=== PATIENT | female | born 1975 | race Caucasian/White ===

== ENCOUNTER 2020-10-20 13:54 | Outpatient (CLI) | payer BC, SELFPAY ==
--- NOTE | ~2020-10-20 | US_ITS ---
EXAMINATION: US thyroid DATE: 10/20/2020 15:56 INDICATION: Goiter. TECHNIQUE: Multiple ultrasound images of the thyroid were obtained. COMPARISON: None. FINDINGS: The right thyroid lobe measures 4.6 x 2.0 x 1.8 cm. The left thyroid lobe measures 4.2 x 2.4 x 2.7 c m. In the right thyroid lobe, there is a 1.7 cm solid, hypoechoic, nrrkp-jrmj-fkax nodule with irina h margin without echogenic foci (TI-RADS TR4). In the left thyroid lobe, there is a 2.1 cm solid, iso echoic, qywow-vzsu-xggl nodule with smooth margin without echogenic foci (TR3). In the left thyroid l obe, there is a 2.6 cm mixed cystic and solid, hypoechoic, rsgal-lelu-emna nodule with ill-defined ma rgin without echogenic foci (TR3). In the left thyroid isthmus, there is a 2.0 cm solid, hypoechoic, ewceo-ofst-zurf nodule with smooth margin without echogenic foci (TR4). In the right thyroid lobe, th ere is a 10 mm solid, hypoechoic, hoszd-tzzc-nzaf nodule with ill-defined margin without echogenic fo ci (TR4). IMPRESSION: 1. Multinodular goiter. Ultrasound-guided fine-needle aspiration of 2 nodules is recommended. Reviewed, dictated and finalized at location A. TAL [employer] INTERN IMPRESSION: 1. Multinodular goiter. Ultrasound-guided fine-needle aspiration of 2 nodules i s recommended.
--- NOTE | 2020-10-20 14:19 | ECHO_ITS ---
Patient Info Name: Elsa Franklin Age: 45 years : 1975 Gender: Female Ht: 58 in Wt: 126 lbs BSA: 1.55 m2 HR: 90 bpm BP: 121 / 74 mmHg Heart Rhythm: Sinus Rhythm Technical Quality: Fair Exam Date: 10/20/2020 2:40 PM Exam Location: [facility] Patient Status: Outpatient Admit Date: 10/20/2020 Staff Ordering Physician: Macarena Vidal DO Truck Washer: Abbey Schuster RDCS Attending Provider: Macarena Vidal DO Referring Physician: Marcy BRYANT; Exam Type: CA echo doppler color flow Study Info Indications R01.1 - Cardiac murmur, unspecified Complete two-dimensional, color flow and Doppler transthoracic echocardiogram is performed. History/Risk Factors Murmur. Summary 1. Complete two-dimensional, color flow and Doppler transthoracic echocardiogram is performed. 2. Left ventricular chamber dimension is normal. 3. Left ventricular systolic function is normal, estimated at 60-65%. 4. The left ventricular diastolic function is abnormal. 5. E/e' 16 is elevated. 6. Left atrial chamber dimension is mildly enlarged. 7. There is moderate aortic valve sclerosis. 8. There is mild aortic valve stenosis based on a peak velocity of 210 cm/s, mean gradient of 8 mmHg, and aortic valve area of 1.4 cm2. 9. The mitral valve has mildly calcified annulus. 10. There is mild to moderate mitral valve regurgitation. 11. No pulmonary hypertension, estimated pulmonary arterial systolic pressure is 33 mmHg. Left Ventricle E/e' 16 is elevated. Left ventricular chamber dimension is normal. Left ventricular systolic function is normal, estimated at 60-65%. The left ventricular diastolic function is abnormal. Right Ventricle Right ventricular chamber dimension is normal. Right ventricular systolic function is normal. Left Atria Left atrial chamber dimension is mildly enlarged. Right Atria Right atrial chamber dimension is normal. Aortic Valve There is mild aortic valve stenosis based on a peak velocity of 210 cm/s, mean gradient of 8 mmHg, and aortic valve area of 1.4 cm2. Probably trileaflet aortic valve. The aortic valve is not well visualized. There is moderate aortic valve sclerosis. There is no aortic valve regurgitation. Pulmonic Valve There is no pulmonic regurgitation. Mitral Valve The mitral valve has mildly calcified annulus. There is no mitral valve stenosis. There is mild to moderate mitral valve regurgitation. Tricuspid Valve There is no tricuspid valve regurgitation. No pulmonary hypertension, estimated pulmonary arterial systolic pressure is 33 mmHg. Pericardium/Pleural There is no pericardial effusion. Inferior Vena Cava Normal inferior vena cava with >50% collapse upon inspiration consistent with normal right atrial pressure, 5 mmHg. Aorta The aortic root size at the sinus of Valsalva is not well visualized. Left Ventricular Outflow Tract Name Value Normal LVOT 2D LVOT Diameter 2.0 cm LVOT Doppler LVOT Peak Gradient 2 mmHg LVOT Mean Gradient 1 mmHg LVOT VTI
== END 2020-10-20 13:55 | disposition home or self-care (01) ==
PROVIDERS: PCP Family Medicine; Visit Provider Family Medicine
DX: R01.1 Cardiac murmur, unspecified (principal); E04.2 Nontoxic multinodular goiter
CPT/HCPCS: 76536; 93306

== ENCOUNTER 2021-01-29 09:11 | Outpatient (CLI) | payer BC, SELFPAY ==
--- NOTE | ~2021-01-29 | US_ITS ---
EXAMINATION: 1. US FNA additional 2. US FNA additional 3. US FNA w image guidance DATE: 01/29/2021 10:18 INDICATION: Nontoxic multinodular goiter. TECHNIQUE: The procedure and its benefits and risks were discussed with the patient. Risks specifically discusse d included bleeding. The patient verbalized understanding of the risks and agreed to proceed. The nec k was prepped and draped in the usual sterile manner. 1% lidocaine was used for local anesthesia. 5 passes were made with a 25G needle into the lesion in left thyroid isthmus under ultrasound guidance . 5 passes were made with a 25G needle into the lesion in superior left thyroid lobe under ultrasound g uidance. 5 passes were made with a 25G needle into the lesion in inferior left thyroid lobe under ultrasound g uidance. There were no immediate complications. The patient understood to call the ordering physici an for results and verbalized that understanding. FINDINGS: Grayscale ultrasound images demonstrate needles advanced into a 2.0 cm nodule in left thyroid isthmus for biopsy. Grayscale ultrasound images demonstrate needles advanced into a 2.1 cm nodule in superio r left thyroid lobe. Grayscale ultrasound images demonstrate needles advanced into a 2.6 cm nodule in inferior left thyroid lobe. IMPRESSION: 1. Ultrasound-guided fine needle aspiration of a nodule in left thyroid isthmus. 2. Ultrasound-guided fine-needle aspiration of a nodule in superior left thyroid lobe. 3. Ultrasound-guided fine-needle aspiration of a nodule in inferior left thyroid lobe. Reviewed, dictated and finalized at location A. IMPRESSION: 1. Ultrasound-guided fine needle aspiration of a nodule in left thyroid isthmu s. 2. Ultrasound-guided fine-needle aspiration of a nodule in superior left thyroi d lobe. 3. Ultrasound-guided fine-needle aspiration of a nodule in inferior left thyroi d lobe. IMPRESSION: 1. Ultrasound-guided fine needle aspiration of a nodule in left thyroid isthmu s. 2. Ultrasound-guided fine-needle aspiration of a nodule in superior left thyroi d lobe. 3. Ultrasound-guided fine-needle aspiration of a nodule in inferior left thyroi d lobe.
== END 2021-01-29 09:12 | disposition home or self-care (01) ==
PROVIDERS: PCP Family Medicine; Visit Provider Internal Medicine Endocrinology, Diabetes & Metabolism
DX: E04.1 Nontoxic single thyroid nodule (principal); E04.2 Nontoxic multinodular goiter
CPT/HCPCS: 10005; 10006; 88173; 88305

== ENCOUNTER 2021-04-06 09:31 | Outpatient (CLI) | payer BC, SELFPAY ==
--- NOTE | ~2021-04-06 | US_ITS ---
EXAMINATION: US thyroid DATE: 04/06/2021 10:06 INDICATION: Nontoxic multinodular goiter. TECHNIQUE: Multiple ultrasound images of the thyroid were obtained. COMPARISON: Ultrasound 10/20/2020 FINDINGS: The right thyroid lobe measures 4.7 x 1.7 x 2.1 cm. The left thyroid lobe measures 5.5 x 2.8 x 2.9 c m. In the right thyroid lobe, there is a 1.2 cm solid, hypoechoic, yrsbq-jmaq-fvhx nodule with irina h margin without echogenic foci (TI-RADS TR4). In the right thyroid lobe, there is a 1.7 cm solid, hy poechoic, uyauw-wifh-ebiw nodule with smooth margin without echogenic foci (TR4). In the left thyroid lobe, there is a 3.2 cm predominantly solid, hypoechoic, haosc-pkin-mgwt nodule with smooth margin w ithout echogenic foci (TR4). IMPRESSION: 1. Multinodular goiter, stable from 10/20/2020. Biopsy of three nodules on 01/29/2021 demonstrated benig n pathology. Reviewed, dictated and finalized at location A. IMPRESSION: 1. Multinodular goiter, stable from 10/20/2020. Biopsy of three nodules on 021 demonstrated benign pathology.
== END 2021-04-06 09:32 | disposition home or self-care (01) ==
PROVIDERS: PCP Family Medicine; Visit Provider Internal Medicine Endocrinology, Diabetes & Metabolism
DX: E04.2 Nontoxic multinodular goiter (principal)
CPT/HCPCS: 76536

== ENCOUNTER 2022-03-31 13:04 | Outpatient (CLI) | payer BC, SELFPAY ==
--- NOTE | ~2022-03-31 | US_ITS ---
EXAMINATION: US thyroid DATE: 03/31/2022 14:17 INDICATION: Nontoxic multinodular goiter TECHNIQUE: Multiple ultrasound images of the thyroid were obtained. COMPARISON: 04/06/2021 FINDINGS: The right thyroid lobe measures 4.2 x 1.8 x 1.7 cm. The left thyroid lobe measures 6.6 x 2.7 x 2.6 c m. Thyroid isthmus measures 2 mm in thickness. There are multiple bilateral thyroid nodules. No inte rval change in a 1.8 cm wider than tall solid hypoechoic nodule at the left-sided thyroid isthmus wit h smooth margins and without echogenic foci. (TI-RADS 4, moderately suspicious , FNA if >=1.5 cm, shekhar ual followup is >=1 cm). A couple similar-appearing solid hypoechoic TI RADS 4 nodules in the right t hyroid, unchanged and measuring 1.6 cm in the mid right thyroid and 1.3 cm the upper pole not measure d on the prior study but on review of prior imaging appears to been present and without significant i nterval change. No significant change in a couple wider than tall isoechoic predominantly solid nodul es with smooth margins and without echogenic foci (TI-RADS 3, mildly suspicious , FNA if >=2.5 cm, an nual followup is >=1.5 cm) measuring 2.5 cm in diameter at the superior left thyroid 3.5 cm in the mi d to inferior left thyroid. Each of these nodules in the left thyroid lobe along with the nodule at t he left isthmus were biopsied on 01/29/2021 which yielded benign pathology. IMPRESSION: 1. Multinodular goiter, stable from 04/06/2021 with previous benign biopsies of the 3 largest nodules as detailed above. Recommend continued annual thyroid ultrasound follow-up. Reviewed, dictated and finalized at location A. IMPRESSION: 1. Multinodular goiter, stable from 04/06/2021 with previous benign biopsies of the 3 largest nodules as detailed above. Recommend continued annual thyroid ult rasound follow-up.
== END 2022-03-31 13:05 | disposition home or self-care (01) ==
PROVIDERS: PCP Family Medicine; Visit Provider Internal Medicine Endocrinology, Diabetes & Metabolism
DX: E04.2 Nontoxic multinodular goiter (principal)
CPT/HCPCS: 76536

== ENCOUNTER 2022-04-21 09:28 | Outpatient (CLI) | payer BC, SELFPAY ==
--- NOTE | 2022-04-21 10:09 | ECHO_ITS ---
Patient Info Name: Elsa Franklin Age: 46 years : 1975 Gender: Female Ht: 59 in Wt: 115 lbs BSA: 1.48 m2 HR: 81 bpm BP: 114 / 76 mmHg Technical Quality: Good Exam Date: 04/21/2022 10:35 AM Exam Location: [facility] Patient Status: Outpatient Admit Date: 04/21/2022 Staff Ordering Physician: Macarena Vidal DO Plier Worker: Vidal Alves RDCS, RT Attending Provider: Macarena Vidal DO Referring Physician: Marcy BRYANT; Exam Type: CA echo doppler color flow Study Info Indications I35.9 - Nonrheumatic aortic valve disorder, unspecified Complete two-dimensional, color flow and Doppler transthoracic echocardiogram is performed. Strain analysis performed. Summary 1. Complete two-dimensional, color flow and Doppler transthoracic echocardiogram is performed. 2. Left ventricular chamber dimension is normal. 3. Left ventricular systolic function is normal, estimated at 65-70%. 4. The left ventricular diastolic function is grade I diastolic dysfunction. 5. E/e' 15 is elevated. 6. Global longitudinal strain is abnormal at -15.1%. 7. There is mild aortic valve sclerosis. 8. There is mild mitral valve regurgitation. 9. There is mild tricuspid valve regurgitation. Left Ventricle E/e' 15 is elevated. Global longitudinal strain is abnormal at -15.1%. Left ventricular chamber dimension is normal. Left ventricular systolic function is normal, estimated at 65-70%. The left ventricular diastolic function is grade I diastolic dysfunction. Right Ventricle Right ventricular systolic function is normal and with normal TAPSE 2.3 cm. Right ventricular chamber dimension is normal. Left Atria Left atrial chamber dimension is normal. Right Atria Right atrial chamber dimension is normal. Aortic Valve The aortic valve is trileaflet. There is mild aortic valve sclerosis. There is no aortic valve stenosis. There is no aortic valve regurgitation. Pulmonic Valve There is no pulmonic regurgitation. Mitral Valve There is no mitral valve stenosis. There is mild mitral valve regurgitation. Tricuspid Valve There is mild tricuspid valve regurgitation. RVSP is not calculated due to an inadequate TR jet. Pericardium/Pleural There is no pericardial effusion. Inferior Vena Cava Normal inferior vena cava with >50% collapse upon inspiration consistent with normal right atrial pressure, 5 mmHg. Aorta The aortic root size at the sinus of Valsalva is normal. Left Ventricular Outflow Tract Name Value Normal LVOT 2D LVOT Diameter 1.9 cm LVOT Doppler LVOT Peak Gradient 4 mmHg LVOT Mean Gradient 2 mmHg LVOT VTI 20 cm LVOT VTI/AV VTI Ratio 0.5 LVOT Stroke Volume 58 ml LVOT CO 5.1 l/min LVOT CI 3.4 l/min/m2 Mitral Valve Name Value Normal
== END 2022-04-21 09:29 | disposition home or self-care (01) ==
PROVIDERS: PCP Family Medicine; Visit Provider Family Medicine
DX: I34.0 Nonrheumatic mitral (valve) insufficiency (principal); I35.0 Nonrheumatic aortic (valve) stenosis; I07.1 Rheumatic tricuspid insufficiency
CPT/HCPCS: 93306

== ENCOUNTER → 2023-06-08 12:51 | Outpatient (CLI) | payer BC, SELFPAY ==
--- NOTE | ~2023-06-08 | US_ITS ---
EXAMINATION: US thyroid DATE: 06/08/2023 13:17 INDICATION: Nontoxic single thyroid nodule TECHNIQUE: Multiple ultrasound images of the thyroid were obtained. COMPARISON: 03/31/2022 FINDINGS: The right thyroid lobe measures 4.8 x 2.2 x 1.8 cm. The left thyroid lobe measures 6.1 x 3.1 x 3.1 c m. Again seen are multiple bilateral thyroid nodules. These include 3 TI-RADS 4 solid wider than varghese l hypoechoic nodules at the upper pole of the right thyroid lobe measuring 1.5 cm, 1.2 cm and 1.3 cm as well as a 1.7 cm nodule at the left side of the thyroid isthmus which are without significant inte rval change since the prior study. Also unchanged are couple larger TI RADS 3 nodules in the left thy roid lobe. This includes a 3.2 cm predominantly solid wider than tall isoechoic nodule with smooth we ll-defined margins in the mid to inferior left thyroid lobe and a 2.2 cm solid isoechoic wider than t all nodule with smooth margins at the superior left thyroid. Both of the left thyroid nodules as well as the largest TI RADS 4 nodule at the left thyroid isthmus were biopsied on 01/29/2021, each yieldin g benign pathology. IMPRESSION: 1. No interval change in a multinodular goiter with a few TI RADS 3 and TI RADS 4 nodules, the 3 larg est a with prior benign pathology on biopsy performed on 01/29/2021. Recommend continued annual thyroi d ultrasound follow-up. Reviewed, dictated and finalized at location A. IMPRESSION: 1. No interval change in a multinodular goiter with a few TI RADS 3 and TI RADS 4 nodules, the 3 largest a with prior benign pathology on biopsy performed on 01/29/2021. Recommend continued annual thyroid ultrasound follow-up.
== END ==
PROVIDERS: PCP Internal Medicine Endocrinology, Diabetes & Metabolism; Visit Provider Internal Medicine Endocrinology, Diabetes & Metabolism
DX: E04.2 Nontoxic multinodular goiter (principal)
CPT/HCPCS: 76536

== ENCOUNTER 2024-05-22 10:40 | Outpatient (CLI) | payer BC, SELFPAY ==
--- NOTE | ~2024-05-22 | US_ITS ---
EXAMINATION: US thyroid DATE: 05/22/2024 10:59 INDICATION: Nontoxic single thyroid nodule. TECHNIQUE: Multiple ultrasound images of the thyroid were obtained. COMPARISON: Ultrasound 06/08/2023, 10/20/20 FINDINGS: The right thyroid lobe measures 4.4 x 2.4 x 1.7 cm. The left thyroid lobe measures 5.1 x 2.5 x 2.5 c m. In the right thyroid lobe, there is a 17 mm solid, hypoechoic, wider than tall nodule with smooth margin without echogenic foci (TI-RADS TR4), stable from 10/20/20. In the right thyroid lobe, there is a 17 mm mixed cystic and solid, isoechoic, wider than tall nodule with ill-defined margin without ec hogenic foci (TR2). In the left thyroid lobe, there is a 19 mm solid, hyperechoic, wider than tall no dule with smooth margin without echogenic foci (TR3), stable from 10/20/20. In the left thyroid lobe, t here is a 2.8 cm mixed cystic and solid, hypoechoic, wider than tall nodule with smooth margin withou t echogenic foci (TR3), stable from 10/20/20. Biopsy of 3 nodules on 01/29/2021 was benign. IMPRESSION: 1. Multinodular goiter, likely not clinically significant. No follow-up is needed. Reviewed, dictated and finalized at location A. IMPRESSION: 1. Multinodular goiter, likely not clinically significant. No follow-up is need ed.
== END 2024-05-22 10:41 ==
LOC: MICIMG 10:41
PROVIDERS: PCP Physician Assistant; Visit Provider Internal Medicine Endocrinology, Diabetes & Metabolism
DX: E04.2 Nontoxic multinodular goiter (principal)
CPT/HCPCS: 76536

== ENCOUNTER 2025-05-17 14:12 | Outpatient (CLI) | payer BC, SELFPAY ==
--- NOTE | ~2025-05-17 | US_ITS ---
EXAMINATION: US thyroid DATE: 05/17/2025 14:37 INDICATION: Nontoxic single thyroid nodule TECHNIQUE: Multiple ultrasound images of the thyroid were obtained. COMPARISON: None. FINDINGS: The right thyroid lobe measures 4.2 x 2.1 x 1.5 cm. The left thyroid lobe measures 5.7 x 3.2 x 3.0 c m. Again seen are multiple bilateral thyroid nodules. No significant interval change in a 1.6 similar solid hypoechoic wider than tall nodule with smooth margins and without echogenic foci. (TI-RADS 4, moderately suspicious , FNA if >=1.5 cm, annual followup is >=1 cm) in the mid right thyroid lobe. Al so without significant interval change is a 1.2 cm Ti RADS 4 nodule at the superior right thyroid wit h similar imaging features. Finally there is no significant interval change in a 1.8 cm mixed cystic and solid isoechoic wider than tall nodule with ill-defined margins and without echogenic foci (TI-RA DS 2, not suspicious, no FNA recommended) in the deep mid right thyroid. No change in an additional 3 .3 cm TI RADS 2 nodules similar imaging features in the inferior left thyroid lobe. Unchanged 1.6 cm solid hyperechoic wider than tall nodule with smooth margins and without echogenic foci (TI-RADS 3, m ildly suspicious , FNA if >=2.5 cm, annual followup is >=1.5 cm) in the superior left thyroid. Both o f the nodules in the left thyroid lobe is been previously biopsied on 01/29/2021 which demonstrated be nign pathology. IMPRESSION: 1. Multinodular goiter with continued chronic stability of multiple bilateral thyroid nodules. Reviewed, dictated and finalized at location A. IMPRESSION: 1. Multinodular goiter with continued chronic stability of multiple bilateral t hyroid nodules.
== END 2025-05-17 14:13 | disposition home or self-care (01) ==
LOC: MICIMG 14:12
PROVIDERS: PCP Family Medicine; Visit Provider Internal Medicine Endocrinology, Diabetes & Metabolism
DX: E04.2 Nontoxic multinodular goiter (principal)
CPT/HCPCS: 76536

== ENCOUNTER 2025-09-04 01:06 | Day surgery (SDC) | payer BC, SELFPAY ==
[2025-08-29 10:27] VITALS: BMI 22.6
--- NOTE | 2025-08-29 10:38 | PC.NURSE ---
[facility] has started construction of its new state of the art ER which will open Spring 2026. With this, we anticipate parking may be a challenge for some our surgical patients and families. Parking spaces are limited but are available for all Surgical, obstetrics, and ER patients sharing this lot. If you arrive and find you are having a hard time finding a parking space, please note that we understand the challenges, please drive around the hospital and park near Hospital Entrance 1. When you enter this entrance, you can ask a volunteer to direct or take you back to the surgical waiting area to check in. We appreciate everyone?s understanding of these expected challenges while we build for your future. Report to the Outpatient Waiting Room, entrance under the green pavilion located off [address], at time _1130_ on date _[id number]_. Planned Procedure Time: _130pm_.? Time changes happen often and if your time is changed the preop area will call you the afternoon before. - You and your visitor will be asked to self-screen and do not enter if you have any COVID symptoms. Please call surgeon if you need to reschedule. - A mask is optional within the hospital at this time. Patients may have clear liquids (water, carbonated beverages, clear teas, apple juice) until 3 hours prior to surgery with a maximum of 20 ounces. - No food from midnight until time of surgery and no smoking, or chewing tobacco (or any form of nicotine). No chewing gum, candy or mints. Take only the following medications with a SIP of water on the morning of surgery: __Levothyroxine DO NOT STOP ANY OF YOUR OTHER PRESCRIPTION MEDICATIONS PRIOR TO SURGERY EXCEPT THE FOLLOWING Hold all vitamins and supplements for 3 days per anesthesiologist. Medications to discontinue per physician Please ask Dr Barron if need to hold Aspirin Date to take last dose Please no make-up, nail tajik, hairspray, perfume, deodorant, or body powder the day of surgery.? No jewelry (including any body piercings) or valuables the day of surgery, leave them at home.? Please take a shower or bath the night before, or the morning of, surgery with an antibacterial soap.? Wear comfortable, loose fitting clothing.? - Jewelry must be removed prior to entering the operating room.? Rings and piercings that are not removed may be cut off. - The hospital will not accept responsibility for valuables.? - Please leave all valuables, including medications, at home the day of surgery. If you are going home after surgery, a licensed water taxi driver must drive you home.? - NO public transportation without another adult if you receive anesthesia. - We recommend that an adult stay with you for 24 hours following discharge. - We also recommend that you do not drive, make important decision, drink alcoholic beverages, or take any drugs that were not prescribed by your health care provider for at least 24 hours after your discharge time. Follow any additional instructions given to you from your surgeon. Telephone instructions given to _Elsa__and asked if any additional questions and then verbalized understanding. Patient advised to call surgeon office or pre surgery nurse liaison [phone] if any additional questions.
--- OUTSIDE RECORDS SUMMARY | 2025-09-04 05:29 | XMS_ITS | Clinical Summary ---
Author Organization [facility] Address [address] [place] [address] Care Team Providers [employer] Electrical Helper Name Role Phone Unavailable Primary Care Provider Unavailabl e Social History Tobacco Use Types Packs/Day Years Used Date Smoking Tobacco: Never Assessed Comments Unknown Sex and Gender Information Value Date Recorded Sex Assigned at Not on file Legal Sex Female 6:51 AM CDT Gender Identity Not on file Sexual Orientation Not on file Plan of Treatment Health Maintenance Due Date Last Done Comments Hepatitis C Virus (HCV) Screening 1975 Hepatitis B Immunization (1 of 3 - 19+ 3-dose series) 1992 Pap Smear 1994 Cervical Cancer Screening (CCS) 2003 HPV/Cotest 2003 Cologuard 2018 Colonoscopy 2018 Colorectal Cancer Screening 2018 Immunochemical Fecal Occult Blood 2018 Pneumococcal Immunization (50+ years) (1 of 1 - PCV) 2023 Zoster Immunization (1 of 2) 2023 Influenza Immunization (#1) 2025 09/0 05/2020, 06/26/2019, 07/04/2018, Additional history exists SARS-COV-2 Immunization ( season) 2025 05/22/2021, 12/30/2020, 12/09/2020 Respiratory Syncytial Virus (RSV) Immunization (Adult) (1 - 1-dose 75+ series) 2048 DTaP/Tdap/Td Immunization Discontinued 07/05/2019 TdaP Immunization Completed 07/05/2019 Human Papillomavirus (HPV) Immunization Aged Out No longer eligible based on patient's age to complete this topic Meningococcal Immunization (ACWY) Aged Out No longer eligible based on patient's age to complete this topic Rotavirus Immunization Aged Out No lo nger eligible based on patient's age to complete this topic
--- OUTSIDE RECORDS SUMMARY | 2025-09-04 05:29 | XMS_ITS | Clinical Summary ---
Author Organization [facility] Address [address] [place] [phone] Phone Care Team Providers Care Livestock Caretaker Name Role Phone Cesilia Kong NP Primary Care Provider [phone] Allergies Active Allergy Reactions Criticality Noted Date Comments Nausea Relief Medicine Palpitations Low 12/16/2022 Medications cholecalcifero l, vitamin D3, (VITAMIN D3 ORAL) Take by mouth Active levothyroxine (SYNTHROID) 50 mcg tablet TAKE 1 TABLET(50 MCG) BY MOUTH DAILY 90 tablet 1 11/30/19 25 Active ferrous sulfate 325 mg (65 mg of elemental iron) tabletIndicati ons:Iron Deficiency Anemia Take 1 tablet (325 mg total) by mouth daily with breakfast Active rosuvastatin (CRESTOR) 5 mg tablet TAKE 1 TABLET(5 MG) BY MOUTH EVERY NIGHT 90 tablet 1 08/14/20 25 Active rosuvastatin (CRESTOR) 5 mg tablet Take 1 tablet (5 mg total) by mouth nightly 90 tablet 3 08/14/20 24 025 Discontinued Active Problems Problem Noted Date Diagnosed Date BMI 24.0-24.9, adult 12/16/2022 Encounter for screening mamm ogram for malignant neoplasm of breast 12/16/2022 Acquired hypothyroidism 12/16/2022 Immunizations Immunization Administration Dates Next Due Hep A, Adult 07/05/2019,01/04/2019 Influenza, Quadrivalent, Spl it, Intramuscular 06/26/2019 Influenza, Quadrivalent, Spl it, Preservative Free, Intramuscular 06/25/2022,06/24/2020,07/04/2018 Influenza, Trivalent, Adjuva nted, Intramuscular 06/27/2017 Influenza, Trivalent, IM (MDV) 07/10/2021 Influenza, Trivalent, Preser vative Free, Intramuscular 06/15/2016,07/13/2015 Tdap 07/05/2019 Typhoid Inactivated 01/04/2019 Surgical History Surgery Date Site/Laterality Comments LYPHADENECTOMY INGUINAL / PELVIC SUPERFICIAL Medical History Medical History Date Comments Hodgkin's lymphoma (HCC) Heart abnormality Benign thyroid cyst 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) Heart murmur Anemia Family History Medical History Relation Name Comments COPD Father Cancer Mother Asthma Sister [place] Sister glioblastoma Sister Relation Name Status Comments Father Alive Mother Sister Alive Social History Tobacco Use Types Packs/Day Years Used Date Smoking Tobacco: Never Passive Smoke Exposure: Past Smokeless Tobacco: Never Tobacco Cessation:Counseling Given: Not Answered PHQ-2 Answer Date Recorded PHQ-2 Total Score (If total score is 3 or more points, staff should administer the PHQ-9) 0 12/16/2022 Comments Unknown Sex and Gender Information Value Date Recorded Sex Assigned at Not on file Legal Sex Female 9:14 AM [employer]ETH[employer] Gender Identity Not on file Sexual Orientation Not on file Last Filed Vital Signs Vital Sign Reading Time Taken Comments Blood Pressure 104/62 02/12/2025 11:06 AM CDT Pulse 86 02/12/2025 11:06 AM CDT Temperature 36.8 C (98.2 F) 12/16/2022 1:26 PM POLYETHYLENE COMBINER Respiratory Rate - - Oxygen Saturation 96% 02/12/2025 11:06 AM CDT Inhaled Oxygen Concentration - - Weight 51.7 kg (114 lb) 02/12/2025 11:06 AM CDT Height 148.6 cm (4' 10.5) 02/12/2025 11:06 AM C DT Body Mass Index 23.42 02/12/2025 11:06 AM CDT Plan of Treatment Health Maintenance Due Date Last Done Comments Breast Cancer Screening-Mammogram 1975 Cervical Cancer Screening 1975 Colon Cancer Screening-Colonoscopy 1975 Hepatitis C Screening 1975 Hepatitis B Screening 1991 Zoster Vaccine (1 of 2) 2023 Depression Screening 12/17/2023 12/16/2022 Regular Well Visit/Exam 18-64 12/17/2023 12/16/2022 Covid-19 Vaccine ( season) 2025 06/25/2022, 11/30/2021, 05/22/2021, Additional history exists Influenza Vaccine (#1) 2025 , 07/10/2021, 06/24/2020, Additional history exists DTaP/Tdap/Td Vaccine (2 - Td or Tdap) 07/05/2029 07/05/2019 Pneumococcal vaccine <65 Aged Out No longer eligible based on patient's age to complete this topic Insurance [employer] [place] [employer] [place] Care Teams Livestock Caretaker Relationship Specialty Start Date End Date Cesilia Kong NP [address] [place] [phone] PCP - General Internal Medicine 12/16/22
[2025-09-04] MEDS: ACETAMINOPHEN 500 MG TABLET 1000 MG PO (11:08)
[2025-09-04 11:17] VITALS: BMI 23.8
[2025-09-04 11:19] VITALS: BP 104/57; PULSE 781; RESP 18; TEMP 36.4; O2SAT 100
[2025-09-04 11:40] LABS: Hematocrit 36.0 % (37.0-47.0); Hemoglobin 11.8 g/dL (12.0-15.0)
--- NOTE | 2025-09-04 11:41 | WPDANESEPPF ---
Anes - Initial Pre Proc Eval Procedure: Operation Date: 09/04/25 12:30 Proposed Procedures p Hysteroscopic Removal and Replacement Intra Uterine Device - Brannon Barron MD Date/Time: 09/04/25 11:41 Surgeon: Brannon Barron MD Pre Op Diagnosis: retained IUD Patient Data Age: 50 Gender: F Height: 1.47 m Weight: 51.8 kg Last Vital Signs Temp 36.4 C L 09/04/25 11:19 Pulse 781 H 09/04/25 11:19 Resp 18 09/04/25 11:19 BP 104/57 L 09/04/25 11:19 Pulse Ox 100 09/04/25 11:19 O2 Del Method Room Air 09/04/25 11:19 Allergies Allergy/AdvReac Type Severity Reaction Status Date / Time metoclopramide (From Reglan) Allergy Severe Agitated Verified 08/29/25 10:25 ondansetron (From Zofran) Allergy Severe Agitated Verified 08/29/25 10:25 Home Medications ?Medication ?Instructions ?Recorded ?Confirmed ?Type albuterol sulfate 90 mcg/actuation 2 puff inhalation Q4-6H PRN 10/19/19 08/29/25 Rx aerosol inhaler shortness of breath #8.5 grams aspirin 81 mg tablet,delayed 81 mg PO DAILY 01/19/21 08/29/25 History release cetirizine 10 mg tablet 10 mg PO DAILY PRN allergy symptoms 01/19/21 08/29/25 History cholecalciferol (vitamin D3) 25 25 mcg PO DAILY 01/19/21 08/29/25 History mcg (1,000 unit) capsule ferrous sulfate 325 mg (65 mg 325 mg PO DAILY #30 tabs 04/12/23 08/29/25 Rx iron) tablet (Feosol) rosuvastatin 5 mg tablet 5 mg PO DAILY 05/20/25 08/29/25 History copper 380 square mm intrauterine 1 device intrauterine ONCE 08/01/25 08/29/25 History device (ParaGard T 380A) levothyroxine 50 mcg tablet 50 mcg PO .COMPLEX 90 days #120 08/02/25 08/29/25 Rx tabs Laboratory Tests 09/04/25 11:27 Hgb 11.8 L g/dL (12.0-15.0) Hct 36.0 L % (37.0-47.0) Patient hx anesthesia problems: none Family hx anesthesia problems: none Results Review: All pre-operative results and documents have been reviewed as part of the pre-operative evaluation. COUNT INCLUDES THE [facility] Past Medical History Medical History Nontoxic multinodular goiter History of Hodgkin's lymphoma treated with chemotherapy and radiation Allergic rhinitis Vitamin D deficiency Hypothyroidism Anemia Asthma Family History Family History Father Family history of glaucoma Mother Family history of malignant neoplasm of stomach Family history of malignant neoplasm Grandparent Family history of congenital heart disease, Onset Age: 35 Family history of cardiovascular disease Family history of malignant neoplasm Family history of Alzheimer's disease Sibling Glioblastoma Other Alcoholism Alzheimer disease Asthma Back pain CHF (congestive heart failure), NYHA class I COPD (chronic obstructive pulmonary disease) Family history of malignant neoplasm of breast Glaucoma Hearing loss Osteoporosis Visual loss, bilateral Social History Social History Smoking status: Never smoker Second hand tobacco smoke exposure: No Alcohol intake: current Drinks per week: 2 Alcohol use details: vodka/coke Substance use: never Substance use type: does not use Lack of Transportation: No Lack of Food: Never True Current Housing: I Have Housing Concerned About Future Housing: No Difficulty Paying Gas/Electric Bills: No Difficulty Paying for Meds: No Currently Unemployed: No Education: Bachelor's Degree Difficulty w/ Childcare or Family Care: No Living arrangements: with family Occupation/Education: occupation Gender identity (if verbalized by the patient): Female Spiritual care concerns: No Agree to blood products: Yes Anes - Eval Final PreProcedure Day of Procedure 09/04/25 11:41 Patient weight: normal Heart: regular rate and rhythm Lungs: clear to auscultation and normal air movement Airway: Mallampati scale class II Neurological: alert and oriented Last oral intake: >/= 8 hours ASA classification: III Emergent: no Anesthetic plan: proceed Anesthesia type and monitoring: general GIVS and standard monitoring Results Review: All pre-operative results and documents have been reviewed as part of the pre-operative evaluation. Informed Consent: The patient's anesthetic plan and its attendant risks and benefits were discussed with the patient/family/POA. Questions were solicited and answers provided to the satisfaction of the patient/family/POA.
--- NOTE | 2025-09-04 12:21 | PM.IMHP ---
H&P: HPI History of Present Illness Date/Time: 09/04/25 12:21 Chief Complaint: Retained IUD and desire for reinsertion Narrative: 50 y/o female with Paragard IUD. Unable to remove in office. Subsequent ultrasound confirmed intrauterine location. She opted for hysteroscopic removal and insertion of new Paragard IUD. She does have regular periods. Review of Systems Review of Systems: All systems reviewed & are unremarkable except as noted in HPI and below Cardiovascular: Cardiovascular: Reports no additional cardiovascular complaints, Denies chest pain and Denies dyspnea Respiratory: Respiratory: Reports no additional respiratory complaints and Denies dyspnea Gastrointestinal: Gastrointestinal: Reports abdominal pain, Denies change in bowel habits, Denies diarrhea, Denies nausea and Denies vomiting Genitourinary: Genitourinary: Reports pelvic pain Musculoskeletal: Musculoskeletal: Reports back pain Integumentary/Breasts: Skin/Breast: Reports system reviewed and no additional complaints, except as docu Neurologic: Reports system reviewed and no additional complaints, except as documented PMFSH Past Medical History Medical History Nontoxic multinodular goiter History of Hodgkin's lymphoma treated with chemotherapy and radiation Allergic rhinitis Vitamin D deficiency Hypothyroidism Anemia Asthma Family History Family History Father Family history of glaucoma Mother Family history of malignant neoplasm of stomach Family history of malignant neoplasm Grandparent Family history of congenital heart disease, Onset Age: 35 Family history of cardiovascular disease Family history of malignant neoplasm Family history of Alzheimer's disease Sibling Glioblastoma Other Alcoholism Alzheimer disease Asthma Back pain CHF (congestive heart failure), NYHA class I COPD (chronic obstructive pulmonary disease) Family history of malignant neoplasm of breast Glaucoma Hearing loss Osteoporosis Visual loss, bilateral Social History Social History Smoking status: Never smoker Second hand tobacco smoke exposure: No Alcohol intake: current Drinks per week: 2 Alcohol use details: vodka/coke Substance use: never Substance use type: does not use Lack of Transportation: No Lack of Food: Never True Current Housing: I Have Housing Concerned About Future Housing: No Difficulty Paying Gas/Electric Bills: No Difficulty Paying for Meds: No Currently Unemployed: No Education: Bachelor's Degree Difficulty w/ Childcare or Family Care: No Living arrangements: with family Occupation/Education: occupation Gender identity (if verbalized by the patient): Female Spiritual care concerns: No Agree to blood products: Yes Meds Home Medications and Allergies Home Medications ?Medication ?Instructions ?Recorded ?Confirmed ?Type albuterol sulfate 90 mcg/actuation 2 puff inhalation Q4-6H PRN 10/19/19 08/29/25 Rx aerosol inhaler shortness of breath #8.5 grams aspirin 81 mg tablet,delayed 81 mg PO DAILY 01/19/21 08/29/25 History release cetirizine 10 mg tablet 10 mg PO DAILY PRN allergy symptoms 01/19/21 08/29/25 History cholecalciferol (vitamin D3) 25 25 mcg PO DAILY 01/19/21 08/29/25 History mcg (1,000 unit) capsule ferrous sulfate 325 mg (65 mg 325 mg PO DAILY #30 tabs 04/12/23 08/29/25 Rx iron) tablet (Feosol) rosuvastatin 5 mg tablet 5 mg PO DAILY 05/20/25 08/29/25 History copper 380 square mm intrauterine 1 device intrauterine ONCE 08/01/25 08/29/25 History device (ParaGard T 380A) levothyroxine 50 mcg tablet 50 mcg PO .COMPLEX 90 days #120 08/02/25 08/29/25 Rx tabs Allergies Allergy/AdvReac Type Severity Reaction Status Date / Time metoclopramide (From Reglan) Allergy Severe Agitated Verified 08/29/25 10:25 ondansetron (From Zofran) Allergy Severe Agitated Verified 08/29/25 10:25 Vital Signs Vital Signs - 24 hr 09/04/25 11:19 Temperature 97.5 F L Pulse Rate 781 H Respiratory Rate 18 Blood Pressure 104/57 L Pulse Oximetry 100 Oxygen Delivery Room Air Exam Const: Orientation/consciousness: oriented to person and oriented to place HENMT: Head: normal to inspection Eyes: General: appearance normal, both eyes and all related structures Resp: Effort & Inspection: normal respiratory effort Auscultation: clear to auscultation bilaterally Cardio: Rate: regular rate Rhythm: regular rhythm GI: Inspection: normal to inspection GI Palp: No Rebound tenderness present Neuro: General: oriented to person and oriented to place Cognition (Neuro): normal cognition Extrem: General: normal to inspection Psych: Appearance: grossly normal and well kempt H&P: Results Labs Labs: Short CBC 09/04/25 Range/Units 11:27 Hgb 11.8 L (12.0-15.0) g/dL Hct 36.0 L (37.0-47.0) % Assessment and Plan Assessment and plan (1) Retained intrauterine contraceptive device (IUD): Code(s): T83.39XA - Other mechanical complication of intrauterine contraceptive device, initial encounter Status: Acute Assessment and Plan: Risk benefits of hysteroscopy reviewed and risk benefits of copper IUD. Questions answered. She agrees with hysteroscopic removal of IUD and insertion of new IUD. (2) Remove/insert IUD: Code(s): Z30.433 - Encounter for removal and reinsertion of intrauterine contraceptive device Status: Acute
--- NOTE | 2025-09-04 12:25 | WPDHPUPDATE1 ---
History and Physical Update Update Date/Time: 09/04/25 12:25 History and Physical has been reviewed, including an updated exam of the patient. There are NO changes in the patient's condition. Risks, benefits, and alternatives have been discussed and questions answered. Patient agrees to proceed with procedure.
--- NOTE | 2025-09-04 12:26 | WPDHPUPDATE1 ---
History and Physical Update Update Date/Time: 09/04/25 12:26 History and Physical has been reviewed, including an updated exam of the patient. There are NO changes in the patient's condition. Risks, benefits, and alternatives have been discussed and questions answered. Patient agrees to proceed with procedure.
[2025-09-04] MEDS: ceFAZolin 2 GM in SODIUM CHLORIDE 0.9% IV 50 ML 100 ML IVPB (12:31)
[2025-09-04] MEDS: LIDOCAINE 1% LOCAL INJ 10 ML VIAL INFILTRATE (12:43)
--- NOTE | 2025-09-04 12:45 | S_PTH ---
PATIENT: Elsa Franklin LOC: [facility] U#:[id number] AGE/SX: 50/F ROOM: RE09/04/[address]: Brannon Barron MD : 1975 BED: DIS: 09/04/2025 SPEC #: [id number] RECD: 09/04/25 13:32 STATUS: LAKISHA REQ #: [id number] WAQAR: 09/04/25 12:[address]: Brannon Barron DEPT: [facility] [place] Surgical RECD BY: Bret Hunt ENTERED: 09/04/25 13:32 SP TYPE: Surgical OTHR DR: Gokul Bundy MD Tissues: A - Polyp Procedures: Hematoxylin and Eosin Stain Gross and Microscopic Level 4
[2025-09-04 12:55] VITALS: BP 99/53; PULSE 78; RESP 16
[2025-09-04] MEDS: LACTATED RINGERS 1,000 ML 30 ML IV CONT (12:55)
--- NOTE | 2025-09-04 13:00 | W.PM.PROC2 ---
Procedure Note - Detailed Date of Procedure 09/04/25 Pre-op Diagnosis retained IUD Post-op Diagnosis Same ( 1. Retained IUD 2. Findings consistent with endometrial polyp 3. Insertion of IUD ParaGard.) Procedure Performed Hysteroscopy with removal of retained IUD. Removal of endometrial lesion. Insertion of ParaGard IUD. Surgeon Brannon Barron MD Anesthesia MAC and Local Findings uterus sound to 8 cm, IUD stem located lower 2nd. Findings of endometrial polypoid structure. Removed completely. Inserted IUD LOT numbere [id number]. Exp Aug 2031. Description of Procedure After informed consent was obtained patient was taken to the operating room and adequate IV sedation was administered. Attention was turned to the vagina. Speculum was inserted. Single-tooth tenaculum placed on the anterior lip of the cervix. 10 cc of 1% lidocaine was used to obtain a cervical block. The uterus was sounded to 8 cm. The cervix was dilated to an 4 Grimm dilator. The hysteroscope was inserted into the cavity Using hydrodilation. The stem of the IUD was located and the lower uterine segment. The hysteroscopic grasper was used and the IUD was grasped and removed intact. The rest of the cavity was visualized and there was noted to be polypoid structure at the lower cavity which was removed with the Aveta. The rest of the cavity was normal. The hysteroscope was removed. The ParaGard was inserted per package instructions. The IUD string was cut to 3 cm. Sponge count correct. Patient tolerated procedure well. She was taken to recovery in stable condition. Estimated Blood Loss 5 Drains No Packing No Pathology Yes (Endometrial lesion) Complications No immediate complications Condition Stable Disposition Same day [facility] Billing Surgery - Charge Forward: Surgery Billing
[2025-09-04 13:25] VITALS: BP 109/75; PULSE 90; RESP 16; O2SAT 100
[2025-09-04 13:55] VITALS: BP 110/62; PULSE 73; RESP 16
== END 2025-09-04 14:00 | disposition home or self-care (01) ==
PROVIDERS: PCP Family Medicine; Visit Provider Obstetrics & Gynecology
PROC: 0U5B8ZZ Destruction of Endometrium, Via Natural or Artificial Opening Endoscopic (ICD-10-PCS; CPT 58563; principal; 2025-09-04 12:30)
DX: Z30.433 Encounter for removal and reinsertion of intrauterine contraceptive device (principal); N84.0 Polyp of corpus uteri; E55.9 Vitamin D deficiency, unspecified; E03.9 Hypothyroidism, unspecified; D64.9 Anemia, unspecified; J45.909 Unspecified asthma, uncomplicated; Z79.51 Long term (current) use of inhaled steroids; Z79.82 Long term (current) use of aspirin; Z85.72 Personal history of non-Hodgkin lymphomas; Z92.3 Personal history of irradiation; Z92.21 Personal history of antineoplastic chemotherapy; Z80.3 Family history of malignant neoplasm of breast; Z80.0 Family history of malignant neoplasm of digestive organs; Z82.49 Family history of ischemic heart disease and other diseases of the circulatory system
CPT/HCPCS: 58579; 58300; 58558; 36415; 85014; 85018; 88305; J0690; A9270; J2003; J2250; J2704; J7120